=== PATIENT | female | born 1980 | race African-American/Black ===

== ENCOUNTER 2016-11-15 16:52 | Outpatient (CLI) | payer MEDICAID ==
[2016-11-15] MEDS ORDERED: LACTATED RINGERS 500 ML IV ONE (18:30)
[2016-11-15 18:32] LABS: Bilirubin,Urine NEG (Negative); Blood,Urine SM (Negative); Ketones,Urine NEG (Negative); Leukocyte Esterase,Urine NEG (Negative); Nitrite,Urine NEG (Negative); Protein,Urine <15 mg/dL mg/dL (Negative); Urobilinogen,Urine < 2.0 mg/dL (<2.0)
[2016-11-15 18:46] LABS: Mean Corpuscular HGB Conc 30 % (30-34); Platelet Count 224 K/mm3 (140-440); Red Blood Count 4.08 M/mm3 (3.65-5.03); Red Cell Distribution Width 19.7 % (13.2-15.2); White Blood Count 11.4 K/mm3 (4.5-11.0)
[2016-11-15 19:09] LABS: Alanine Aminotransferase 17 units/L (7-56); Lactate Dehydrogenase 189 units/L (91-180); Uric Acid 7.5 mg/dL (3.5-7.6)
[2016-11-15 19:21] LABS: Hematocrit 27.9 % (30.3-42.9); Hemoglobin 8.3 gm/dl (10.1-14.3); Mean Corpuscular Hemoglobin 20 pg (28-32); Mean Corpuscular Volume 68 fl (79-97)
--- NOTE | 2016-11-16 09:12 | Ultrasound Report ---
ULTRASOUND BIOPHYSICAL PROFILE: History: well being Technique: Transabdominal ultrasound with Doppler interrogation. 2 - breathing movements 2 - movements 2 - posture and tone 2 - Qualitative amniotic fluid volume 8 - TOTAL SCORE OF POSSIBLE 8 Heart Rate (bpm) 126
--- NOTE | 2016-11-16 09:13 | Ultrasound Report ---
ULTRASOUND OB LIMITED History: well being Technique: Transabdominal ultrasound with Doppler interrogation. Gestation: Single Position: Breech Amniotic Fluid: Normal LILIAM = 12.6 cm Heart Rate: 126 BPM
[2016-11-18 07:43] VITALS: BP 141/83
== END 2016-11-15 19:52 | disposition home or self-care (01) ==
LOC: TRG 16:52
PROVIDERS: ATTEND Obstetrics & Gynecology
DX: O32.1XX0 Maternal care for breech presentation, not applicable or unspecified (principal); O47.1 False labor at or after 37 completed weeks of gestation; Z3A.37 37 weeks gestation of pregnancy
CPT/HCPCS: 36415; 59025; 76815; 76819; 81001; 82565; 82962; 83615; 84450; 84460; 84550; 85027

== ENCOUNTER 2016-11-17 16:56 | Inpatient (IN) | payer MEDICAID ==
[2016-11-17 17:47] LABS: Hematocrit 28.7 % (30.3-42.9); Hemoglobin 8.6 gm/dl (10.1-14.3); Mean Corpuscular HGB Conc 30 % (30-34); Platelet Count 244 K/mm3 (140-440); Red Blood Count 4.18 M/mm3 (3.65-5.03); Red Cell Distribution Width 19.8 % (13.2-15.2); White Blood Count 13.2 K/mm3 (4.5-11.0)
[2016-11-17 17:50] LABS: Bilirubin,Urine NEG (Negative); Blood,Urine NEG (Negative); Ketones,Urine NEG (Negative); Leukocyte Esterase,Urine NEG (Negative); Mean Corpuscular Hemoglobin 21 pg (28-32); Mean Corpuscular Volume 69 fl (79-97); Nitrite,Urine NEG (Negative); Urobilinogen,Urine < 2.0 mg/dL (<2.0)
[2016-11-17] MEDS ORDERED: LACTATED RINGERS 1,000 ML ONE (17:57)
[2016-11-17 18:08] LABS: Alanine Aminotransferase 18 units/L (7-56); Lactate Dehydrogenase 252 units/L (91-180); Uric Acid 7.3 mg/dL (3.5-7.6)
[2016-11-17] MEDS ORDERED: CERVIDIL VG ONE (18:30)
--- NOTE | 2016-11-17 18:47 | History and Physical Report ---
History of Present Illness Date of examination: 11/17/16 Date of admission: 11/17/16 17:55 Chief complaint: sent from [facility] clinic for elevated blood pressures History of present illness: Pt cynthia 36 year old female THIERRY 12/04/16 at 37w4d who presents from [facility] clinic with elevated blood pressures for preeclampsia evaluation. Her has been complicated by chronic hypertension on no medication, advanced maternal age, morbid obesity, gestational diabetes A2 on glyburide 10mg BID as well as unstable lie. She had a placenta previa earlier in the that resolved. She is GBS negative. Given that this is the patient's second blood pressure elevation in one week and she was scheduled for delivery on SundayNovember 21, the decision was made to proceed with delivery. At the [facility] office earlier today, the patient was noted to be cephalic. Past History Past Medical History: hypertension, diabetes (gestational diabetes ), high cholesterol, other (morbid obesity ) Past Surgical History: no surgical history Family/Genetic History: hypertension, cancer Social history: no significant social history, - Obstetrical History Expected Date of Delivery: 12/04/16 Actual Gestation: 37 Week(s) 4 Day(s) : 6 Para: 5 Hx # Term Pregnancies: 5 Number of Pregnancies: 0 Spontaneous Abortions: 0 Induced : 0 Number of Living Children: 5 Medications and Allergies Allergies Allergy/AdvReac Type Severity Reaction Status Date / Time No Known Allergies Allergy Verified 11/15/16 17:35 Active Meds: Active Medications Hydralazine HCl (Apresoline) 5 mg IV Q30MIN PRN PRN Reason: Hypertension Lactated Ringer's (Lactated Ringers) 1,000 mls @ 125 mls/hr IV DIRECT OLI Review of Systems All systems: negative - Vital Signs Vital signs: Vital Signs Pulse BP 90 151/85 11/17/16 17:20 11/17/16 17:20 Temp Pulse Resp BP Pulse Ox 87 135/75 98 11/17/16 18:35 11/17/16 18:35 11/17/16 17:36 - Physical Exam Breasts: Positive: deferred Cardiovascular: Regular rate Lungs: Positive: Clear to auscultation Abdomen: Positive: soft (obese ), other (candidiasis of inguinal folds ) Genitourinary (Female): Positive: normal external genitalia Uterus: Positive: enlarged (gravid ) Extremities: Positive: edema (trace ) - Obstetrical FHR: auscultation normal Uterine Contraction Monitor Mode: External Cervical Dilatation: 0 Cervical Effacement Percentage: 30 station: -4 Uterine Contraction Pattern: Absent Uterine Tone Measurement Phase: Resting Results Result Diagrams: 11/17/16 17:30 11/17/16 17:30 Abnormal lab results 11/17/16 11/17/16 11/17/16 Range/Units 17:30 17:30 17:30 WBC 13.2 H (4.5-11.0) K/mm3 Hgb 8.6 L (10.1-14.3) gm/dl Hct 28.7 L (30.3-42.9) % MCV 69 L (79-97) fl MCH 21 L (28-32) pg RDW 19.8 H (13.2-15.2) % Creatinine 0.5 L (0.7-1.2) mg/dL Lactate Dehydrogenase 252 H (91-180) units/L U Epithel Cells (Auto) 14.0 H (0-13.0) /HPF All other labs normal. Assessment and Plan A: IUP at 37w4d Chronic hypertension with elevation of blood pressure Gestational Diabetes A2 on Glyburide 10 mg BID Morbid Obesity Advanced Maternal Age Unstable Lie GBS negative P: Admit to labor and delivery PIH labs Ultrasound to confirm cephalic presentation Accuchek with sliding scale as needed
[2016-11-17] MEDS ORDERED: D50W (25GM) IV PRN (18:48)
--- NOTE | 2016-11-17 18:55 | Event Note ---
Date: 11/17/16 Ultrasound shows oblique presentation with head in left upper quadrant. Unable to initiate an induction as pt needs to be delivered by delivery for malpresentation. Pt ate a full meal consisting of a Whopper sandwich just prior to her arrival. Plan observation over night with repeat ultrasound and planned at 7 am. Pt and understand and agree. will be done more urgently if maternal or status worsens.
[2016-11-17] MEDS ORDERED: NACL 0.9% 500 ML 500 ML IV ONE (18:56)
[2016-11-17] MEDS ORDERED: LACTATED RINGERS 1,000 ML IV SCH (19:00)
[2016-11-17] MEDS ORDERED: DIABETA PO SCH (20:30)
[2016-11-17] MEDS: APRESOLINE IV PRN (23:35)
[2016-11-18] MEDS ORDERED: REGLAN IV ONE (05:05)
[2016-11-18] MEDS ORDERED: BICITRA PO ONE (05:05)
[2016-11-18] MEDS ORDERED: PEPCID IV ONE (05:05)
[2016-11-18] MEDS ORDERED: LACTATED RINGERS 1,000 ML IV SCH ×3 (06:00→21:00)
[2016-11-18] MEDS ORDERED: ANCEF/STERILE WATER 2 GM/20 ML 2 GM/20 ML SYRINGE IV NR (06:00)
[2016-11-18] MEDS ORDERED: PITOCin/NS 20 UNIT/1000ML DRIP 20 UNITS/1,000 ML BAG IV SCH ×2 (06:00→11:55)
[2016-11-18] MEDS: APRESOLINE IV PRN (06:29)
--- NOTE | 2016-11-18 07:57 | Anesthesia Consultation ---
Anesthesia Consult and Med Hx Date of service: 11/18/16 - Airway Anesthetic Teeth Evaluation: Good ROM Head & Neck: Adequate Mental/Hyoid Distance: Adequate Mallampati Class: Class II Intubation Access Assessment: Probably Good - Pulmonary Exam CTA: Yes - Cardiac Exam Cardiac Exam: RRR - Pre-Operative Health Status ASA Pre-Surgery Classification: ASA3, Emergency Proposed Anesthetic Plan: Epidural, Spinal - Pulmonary Hx Asthma: No COPD: No Hx Pneumonia: No - Cardiovascular System Hx Hypertension: Yes - Central Nervous System Hx Seizures: No Hx Psychiatric Problems: No - Endocrine Hx Renal Disease: No Hx End Stage Renal Disease: No Hx Hypothyroidism: No Hx Hyperthyroidism: No - Hematic Hx Anemia: No Hx Sickle Cell Disease: No - Other Systems Hx Alcohol Use: Yes (occasional) Hx Obesity: Yes (morbid)
--- NOTE | 2016-11-18 07:58 | Anesthesia Day of Surgery ---
Anesthesia Day of Surgery - Day of Surgery Patient Examined: Yes Patient H&P Reviewed: Yes Patient is NPO: Yes (FSP)
[2016-11-18] MEDS ORDERED: LACTATED RINGERS 1,000 ML ONE (08:27)
[2016-11-18] MEDS ORDERED: NACL 0.9% 100 ML ONE (08:27)
[2016-11-18] MEDS ORDERED: NEO SYNEPHRINE ONE (08:27)
[2016-11-18] MEDS ORDERED: NACL 0.9% IR ONE (08:33)
[2016-11-18] MEDS ORDERED: WATER FOR IRRIG STERILE IR ONE (08:33)
[2016-11-18] MEDS ORDERED: MORPHINE ONE (08:56)
[2016-11-18] MEDS ORDERED: ePHEDrine SULFATE ONE (09:03)
[2016-11-18] MEDS ORDERED: SUBLIMAZE ONE (09:14)
[2016-11-18] MEDS ORDERED: VERSED ONE (09:22)
--- NOTE | 2016-11-18 10:10 | Post Anesthesia Evaluation ---
- Post Anesthesia Evaluation Patient Participated: Yes Airway Patent: Yes Stable Respiratory Function: Yes Temp > 96.8F: Yes Pain Manageable: Yes Adequeate Hydration: Yes Anesthesia Complications: No Block Receding Appropriately: Not Applicable
--- NOTE | 2016-11-18 10:14 | Procedure Note ---
OB Delivery Note - Delivery Date of Delivery: 11/18/16 Surgeon: MAUREEN PELAEZ Estimated blood loss: other (900 mL) - Section Preop diagnosis: other malpresentation (Transverse ) Postop diagnosis: other (Chronic HTN, GDM, AMA, Morbid Obesity , Vertex presentation) section procedure: section, primary low transverse Disposition: PACU Complications: none Narrative: Please see operative report. - Infant A at 1 minute: 8 at 5 minutes: 9 Gender: Female (3371g (7lb 7 oz))
--- NOTE | 2016-11-18 10:16 | Ultrasound Report ---
Gestation: Single Position: Breech Placenta: Anterior Placental Grade: 1 Heart Rate: 154 BPM
--- NOTE | 2016-11-18 10:22 | Ultrasound Report ---
Gestation: Single Position: Transverse and right Heart Rate: 134 BPM
--- NOTE | 2016-11-18 10:28 | Operative Report ---
Operative Report Operative Report: Date of procedure: November 18, 2016 Preoperative diagnosis: 1) IUP at 37w5d 2) Transverse Presentation; Unstable Lie 3) Chronic Hypertension 4) Gestational Diabetes 5) Morbid Obesity 6) Advanced Maternal Age Postoperative diagnosis: 1) IUP at 37w5d 2) Chronic Hypertension 4) Gestational Diabetes 5) Morbid Obesity 6) Advanced Maternal Age Procedure: Primary Low Transverse Section Surgeon: Taylor Canada M.D. Anesthesia: Spinal-Epidural Findings: 1) Viable female , Apgars 8 and 9, weight 3371g, (7 lb 7 oz) in vertex presentation. True knot of umbilical cord. 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 Counts correct x 3 Disposition: Stable to PACU Indication for procedure: Patient is a 36-year-old [place] 005 initially admitted at 37 weeks 4 days from maternal- medicine clinic. She was noted to have elevated blood pressures in the office and was sent to the hospital for further evaluation. Given that this was the patient's second evaluation for elevated blood pressure within 1 week the decision was made to proceed with delivery as the patient was scheduled for delivery in 4 days. The patient was initially vertex on her ultrasound at maternal- medicine clinic. However, repeat ultrasound after hospital arrival showed transverse presentation. The ultrasound was repeated immediately prior to the section and again showed transverse presentation Operation in detail: After the risks, benefits, alternatives and complications were explained to the patient she gave informed consent for the procedure. She was subsequently taken to the operating room where spinal-epidural anesthesia was noted to be adequate. She was subsequently placed in the dorsal supine position with leftward tilt and prepped and draped in a normal sterile fashion. heart tones were noted to be in the 140 s prior to incision. A timeout was performed. A Pfannenstiel skin incision was made with the knife and carried down to the layer of the fascia with the Bovie. The fascia was incised in the midline and the fascial incision was extended bilaterally with the Bovie. Attention was then turned to the superior aspect of the incision which was grasped with two Kochers, tented up, and dissected off the rectus muscles. Attention was then turned to the inferior aspect of the incision which was grasped with two Kochers , tented up and dissected off the rectus muscles. The rectus muscles were then in the midline. The peritoneum was then entered bluntly. The peritoneal incision was extended with good visualization of the bladder. The peritoneal incision was then stretched. An Reggie self-retaining retractor was placed for visualization. The bladder blade was placed. The vesicouterine peritoneum was grasped with smooth pickups and incised with Metzenbaum scissors. Metzenbaum scissors were used to extend the incision bilaterally. The bladder flap was then created digitally and the bladder blade was replaced. At this time multiple varices were noted in the lower uterine segment. A transverse incision was made superior to these varices with a knife and extended bilaterally with the bandage scissors. The head was delivered without difficulty followed by shoulders and body. was bulb suctioned at delivery. The cord was clamped and cut and the was handed to NICU staff in attendance. The placenta was then delivered manually. The uterus was then exteriorized and cleared of all clots and debris. The hysterotomy was then reapproximated with 0 Vicryl in a running locked fashion. A second layer of the same suture was used in imbricating fashion. A figure-of- eight of 0 Vicryl was used at the center of the incision to obtain hemostasis. The hysterotomy was inspected and hemostasis was noted. The Reggie self- retaining retractor was removed. The gutters were irrigated and cleared of all clots and debris. The hysterotomy was again inspected and noted to be hemostatic. Tisseel was sprayed over the hysterotomy. The rectus muscles and peritoneum were then reapproximated with 2-0 Vicryl in an interrupted fashion. Surgicel was placed over the rectus muscles. The fascia was reapproximated with 0 Vicryl in a running fashion. The subcutaneous tissue was reapproximated with 3-0 Vicryl in a running fashion. The skin was reapproximated with 4-0 Vicryl in a subcuticular fashion. The incision was then covered with steri strips and a pressure dressing. The procedure was then ended. The patient tolerated the procedure well and was taken to the PACU in stable condition. All instrument, lap, and needle counts were correct 3. Given the patient's low preoperative hemoglobin and hematocrit, another hemoglobin and hematocrit will be drawn in the PACU.
[2016-11-18] MEDS ORDERED: PHENERGAN PR PRN (11:00)
[2016-11-18] MEDS ORDERED: DILAUDID IV PRN (11:00)
[2016-11-18] MEDS ORDERED: PHENERGAN PO PRN (11:00)
[2016-11-18] MEDS ORDERED: NARCAN 0.4 MG/1 ML IV PRN ×2 (11:00→11:55)
[2016-11-18] MEDS ORDERED: ZOFRAN IV PRN ×2 (11:00→11:55)
[2016-11-18 11:09] LABS: Hemoglobin 7.4 gm/dl (10.1-14.3)
[2016-11-18] MEDS ORDERED: TUCKS PAD TP PRN (11:55)
[2016-11-18] MEDS ORDERED: LANSINOH TP PRN (11:55)
[2016-11-18] MEDS ORDERED: MORPHINE IV PRN ×2 (11:55)
[2016-11-18] MEDS ORDERED: MYLICON PO PRN (11:55)
[2016-11-18] MEDS ORDERED: SODIUM CHLORIDE FLUSH SYRINGE 10 ML IV NR (11:55)
[2016-11-18] MEDS ORDERED: TYLENOL PO PRN (11:55)
[2016-11-18] MEDS ORDERED: TORADOL IV PRN (11:55)
[2016-11-18] MEDS: ANCEF/NS 1 GM/50 ML 1 GM/50 ML BAG IV SCH ×2 (15:00→23:21)
[2016-11-18] MEDS ORDERED: BENADRYL IV PRN (15:20)
[2016-11-18] MEDS: FEOSOL PO SCH (22:00)
[2016-11-18 23:13] LABS: Hematocrit 25.1 % (30.3-42.9); Hemoglobin 7.5 gm/dl (10.1-14.3); Mean Corpuscular HGB Conc 30 % (30-34); Platelet Count 226 K/mm3 (140-440); White Blood Count 18.3 K/mm3 (4.5-11.0)
[2016-11-18 23:14] LABS: Mean Corpuscular Hemoglobin 21 pg (28-32); Mean Corpuscular Volume 70 fl (79-97)
[2016-11-18] MEDS: PERCOCET 5/325 PO PRN (23:56)
[2016-11-19] MEDS: MOTRIN PO PRN ×3 (04:08→17:59)
[2016-11-19] MEDS ORDERED: MILK OF MAGNESIA PO PRN (08:00)
[2016-11-19] MEDS: FEOSOL PO SCH (09:31)
[2016-11-19] MEDS: PRENATAL VITAMIN PO SCH (09:31)
[2016-11-19] MEDS: PERCOCET 5/325 PO PRN (09:33)
[2016-11-19] MEDS ORDERED: PERCOCET 5/325 PO PRN (10:06)
--- NOTE | 2016-11-19 10:07 | Progress Note ---
Assessment and Plan A: POD#1 s/p primary section at term, chronic hypertension, gestational diabetes A2, morbid obesity advanced maternal age P: Routine postop care. Abdominal binder. Subjective - Subjective Date of service: 11/19/16 Principal diagnosis: s/p primary section at term Interval history: No overnight events. Pt asking when she can go home. Patient reports: appetite normal, voiding normally, pain well controlled, flatus , ambulating normally, no bowel movement, no nauseated [place]: in NICU (for hypoglycemia ) Objective - Vital Signs Latest vital signs: Vital Signs Temp Pulse Pulse Pulse Resp BP BP 11/19/16 09:35 20 11/19/16 09:33 20 11/19/16 07:49 97.9 F 79 20 138/95 11/19/16 04:08 18 11/18/16 23:56 18 11/18/16 23:30 98.6 F 68 16 111/77 11/18/16 19:25 98.6 F 78 16 136/75 11/18/16 16:04 20 11/18/16 15:29 98.7 F 90 20 130/86 11/18/16 11:40 98.8 F 98 H 20 128/73 11/18/16 11:06 24 11/18/16 11:04 99.0 F 99 H 26 H 118/68 11/18/16 10:49 98 H 31 H 118/72 11/18/16 10:34 103 H 32 H 118/70 11/18/16 10:19 103 H 30 H 103/63 11/18/16 10:14 103 H 28 H 110/63 11/18/16 10:09 101 H 28 H 109/64 Pulse Ox 11/19/16 09:35 11/19/16 09:33 11/19/16 07:49 11/19/16 04:08 11/18/16 23:56 11/18/16 23:30 11/18/16 19:25 11/18/16 16:04 11/18/16 15:29 11/18/16 11:40 11/18/16 11:06 11/18/16 11:04 98 11/18/16 10:49 97 11/18/16 10:34 97 11/18/16 10:19 98 11/18/16 10:14 97 11/18/16 10:09 97 Intake and Output 11/18/16 11/19/16 11/19/16 22:59 06:59 14:59 Intake Total 1190 500 Output Total 120 1800 Balance 1070 -1300 Intake: IV 300 ANCEF/NS 1 GM/50 ML 1 gm 50 In 50 ml @ 100 mls/hr IV Q8H OLI Rx#:[id number] PITOCin/NS 20 UNIT/1000ML 250 DRIP 20 units In 1,000 ml @ 250 mls/hr IV DIRECT OLI Rx#:[id number] Oral 400 Intake, Free Water 490 500 Output: Urine 120 1800 Indwelling Catheter 120 600 Void 1200 Other: Total, Intake Amount 160 Total, Output Amount 120 600 # Voids Void 1 - Exam Breasts: Present: deferred Cardiovascular: Present: Regular rate Lungs: Present: Clear to auscultation Abdomen: Present: soft (obese) Uterus: Present: fundal height below umbilicus Extremities: Present: normal Incision: Present: intact - Labs Labs: Abnormal lab results 11/17/16 11/17/16 11/18/16 Range/Units 17:30 23:24 06:51 WBC (4.5-11.0) K/mm3 RBC (3.65-5.03) M/mm3 Hgb (10.1-14.3) gm/dl Hct (30.3-42.9) % MCV (79-97) fl MCH (28-32) pg RDW (13.2-15.2) % POC Glucose 153 H 122 H 56 L (70-105) 11/18/16 11/18/16 11/18/16 Range/Units 10:30 11:19 22:52 WBC 18.3 H (4.5-11.0) K/mm3 RBC 3.60 L (3.65-5.03) M/mm3 Hgb 7.4 L 7.5 L (10.1-14.3) gm/dl Hct 25.0 L 25.1 L (30.3-42.9) % MCV 70 L (79-97) fl MCH 21 L (28-32) pg RDW 20.0 H (13.2-15.2) % POC Glucose 143 H (70-105)
[2016-11-19] MEDS ORDERED: BOOSTRIX IM ONE (10:35)
[2016-11-19] MEDS ORDERED: M-M-R II VACCINE SUB-Q ONE (10:35)
[2016-11-20] MEDS: FEOSOL PO SCH ×3 (02:00→22:35)
[2016-11-20] MEDS: MOTRIN PO PRN ×3 (02:05→22:35)
--- NOTE | 2016-11-20 08:56 | Progress Note ---
Assessment and Plan POD#2 c/sec for breech, HTN 1. patient ambulating well 2. tolerating diet and pain well controlled 3. rh + no rhogam indicated 4. baby in [place] for hypoglycemia 5. breast feeding 6 BP will continue to watch will consider antihypertensive ( consider labetolol ) 7. incision clean dry intact 8. Unsure of control 9. consider d/c home tomorrow as baby should be pending discharge Subjective - Subjective Date of service: 11/20/16 Principal diagnosis: s/p primary section at term Patient reports: appetite normal, voiding normally, pain well controlled, flatus , ambulating normally [place]: doing well, in NICU Objective - Vital Signs Latest vital signs: Vital Signs Temp Pulse Resp BP 11/20/16 02:05 18 11/20/16 00:00 98.6 F 77 16 123/75 11/19/16 17:59 20 11/19/16 15:55 98.9 F 98 H 20 145/82 11/19/16 09:35 20 11/19/16 09:33 20 Intake and Output 11/19/16 11/20/16 11/20/16 22:59 06:59 14:59 Intake Total 600 Balance 600 Intake: Intake, Free Water 600 - Exam Breasts: Present: normal Cardiovascular: Present: Regular rate, Normal S1 Lungs: Present: Clear to auscultation, Normal air movement Abdomen: Present: normal appearance, soft, normal bowel sounds. Absent: distention, tenderness, guarding Vulva: both: normal Uterus: Present: normal, firm, fundal height below umbilicus. Absent: bogginess , tenderness Extremities: Present: normal Incision: Present: normal, dry, intact
[2016-11-20] MEDS: PRENATAL VITAMIN PO SCH (11:30)
[2016-11-20] MEDS: NORMODYNE PO SCH (22:33)
--- NOTE | 2016-11-21 08:29 | Progress Note ---
Assessment and Plan - Patient Problems (1) Unstable lie of fetus Current Visit: Yes Status: Acute Qualifiers: Fetus number: F Plan to address problem: Discharge home Subjective - Subjective Date of service: 11/21/16 Principal diagnosis: s/p primary section at term Interval history: The patient is doing well. She is tolerating regular diet and her pain is well controlled. Patient reports: appetite normal, voiding normally, pain well controlled : in NICU Objective - Vital Signs Latest vital signs: Vital Signs Temp Pulse Pulse Resp BP BP 11/21/16 08:20 16 11/21/16 00:00 98.7 F 83 20 109/54 11/20/16 22:33 76 130/76 11/20/16 16:36 98.4 F 85 20 135/78 11/20/16 11:30 20 11/20/16 08:35 98.9 F 91 H 20 144/87 Intake and Output 11/20/16 11/21/16 11/21/16 22:59 06:59 14:59 Intake Total 240 Balance 240 Intake: Oral 240 Other: Total, Intake Amount 240 # Voids Void 1 1 - Exam Abdomen: Present: normal appearance, soft Incision: Present: normal - Labs Labs: Abnormal lab results 11/17/16 Range/Units 17:30 Crossmatch See Detail
--- NOTE | 2016-11-21 08:31 | Discharge Summary ---
Providers - Providers Date of Admission: 11/17/16 17:55 Date of discharge: 11/21/16 Attending physician: MAUREEN PELAEZ 11/18/16 11:55 Consult to Official Greeter [CONS] Routine Reason For Exam: Primary care physician: MAUREEN PELAEZ Hospitalization Reason for admission: induction of labor Procedure: section, primary low transverse Incision: normal complications: other (elevated blood pressures) Discharge diagnosis: IUP at term delivered [place] baby: female Hospital course: Preoperative request of maternal medicine and the patient was admitted for delivery. has been complicated by gestational diabetes and unstable lie. A primary delivery was performed secondary to unstable lie. The patient will was administered antihypertensives . Condition at discharge: Good Disposition: DISCHARGED TO HOME OR SELFCARE - Discharge Diagnoses (1) Unstable lie of fetus Status: Acute Qualifiers: Fetus number: F Plan - Discharge Medications Prescriptions: Docusate Sodium [Colace] 100 mg PO BID PRN #60 capsule PRN Reason: Constipation Ferrous Sulfate [Feosol 325 MG tab] 325 mg PO BID #60 tablet Ibuprofen [Motrin 800 MG tab] 800 mg PO Q8HR PRN #30 tablet PRN Reason: Pain Labetalol [Normodyne TAB] 100 mg PO BID #60 tablet oxyCODONE /ACETAMINOPHEN [Percocet 5/325] 1 tab PO Q6HR PRN #30 tablet PRN Reason: Pain - Provider Discharge Summary Activity: no sex for 6 weeks, no heavy lifting 4 weeks, no strenuous exercise Diet: routine Instructions: routine Additional instructions: [] Smoking cessation referral if applicable(refer to patient education folder for contact #) [] Refer to [facility]'s [facility] Booklet Call your doctor immediately for: * Fever > 100.5 * Heavy vaginal bleeding ( >1 pad per hour) * Severe persistent headache * Shortness of breath * Reddened, hot, painful area to leg or breast * Drainage or odor from incision. * Keep incision clean and dry at all times and follow doctor's instructions regarding bathing/showering Follow-up in 2 weeks - Follow up plan
[2016-11-21] MEDS: PRENATAL VITAMIN PO SCH (10:32)
[2016-11-21] MEDS: FEOSOL PO SCH (10:32)
[2016-11-21] MEDS: NORMODYNE PO SCH (10:33)
--- NOTE | 2016-11-21 10:36 | Progress Note ---
Subjective Date of service: 11/21/16 Principal diagnosis: s/p primary section at term Interval history: 3rd POD after Patient is in the bed, comfortable. Pain is well controlled with pain meds. Ambulated well. No residual neurological deficit. No anesthesia complications Objective - Constitutional Vitals: Vital Signs - 12hr 11/20/16 11/21/16 11/21/16 22:33 00:00 08:18 Temperature 98.7 F 98.3 F Pulse Rate 76 Pulse Rate [ 83 From Monitor] Pulse Rate [ 90 Right Radial] Respiratory 20 20 Rate Blood Pressure 130/76 Blood Pressure 109/54 [Left Arm] Blood Pressure 128/84 [Right Arm] 11/21/16 08:20 Temperature Pulse Rate Pulse Rate [ From Monitor] Pulse Rate [ Right Radial] Respiratory 16 Rate Blood Pressure Blood Pressure [Left Arm] Blood Pressure [Right Arm] - Labs CBC & Chem 7: 11/18/16 22:52 11/17/16 17:30 Labs: Abnormal lab results 11/17/16 Range/Units 17:30 Crossmatch See Detail
[2016-11-21 14:21] VITALS: BP 126/60
== END 2016-11-21 15:15 | disposition home or self-care (01) | DRG 765 ==
LOC: TRG 16:56 → LD 16:57 → TRG 17:55 → LD 17:55 → OB 11-18 11:35
PROVIDERS: ADMIT Obstetrics & Gynecology; ATTEND Obstetrics & Gynecology
PROC: 10D00Z1 Extraction of Products of Conception, Low, Open Approach (ICD-10-PCS; principal; 2016-11-18)
DX: O32.8XX0 Maternal care for other malpresentation of fetus, not applicable or unspecified (principal); O10.92 Unspecified pre-existing hypertension complicating childbirth; Z68.41 Body mass index [BMI] 40.0-44.9, adult; O24.425 Gestational diabetes mellitus in childbirth, controlled by oral hypoglycemic drugs; Z3A.37 37 weeks gestation of pregnancy; E66.01 Morbid (severe) obesity due to excess calories; Z37.0 Single live birth; O75.89 Other specified complications of labor and delivery; E78.00 Pure hypercholesterolemia, unspecified; O99.214 Obesity complicating childbirth
CPT/HCPCS: 36415; 76815; 81001; 82565; 82962; 83615; 84450; 84460; 84550; 85014; 85018; 85027; 86850; 86900; 86901; 86920; 88307; 99211; C9250; G0463; J0360; J0690; J1170; J1200; J1885; J2250; J2270; J2370; J2590; J2765; J3010; J7120

== ENCOUNTER 2018-04-23 19:26 | Inpatient (IN) | payer OTHER ==
[2018-04-23] MEDS ORDERED: TYLENOL PO PRN (21:14)
[2018-04-23] MEDS ORDERED: BENADRYL PO PRN (21:14)
[2018-04-23] MEDS ORDERED: COLACE PO PRN (21:14)
[2018-04-23] MEDS ORDERED: DEEP SEA NS PRN (21:14)
[2018-04-23] MEDS ORDERED: ZOFRAN IV PRN (21:14)
--- NOTE | 2018-04-23 21:31 | History and Physical Report ---
History of Present Illness Date of admission: 04/23/18 Chief complaint: Sent from [facility] for elevated blood pressure History of present illness: Pt is a 37 year old THIERRY 07/13/18 at 28w3d presents from [facility] office for further evaluation of elevated blood pressure. She reports taking her Methyldopa 250 mg BID. She denies any other symptoms at this time. She has had care at [facility] secondary to chronic hypertension, gestational diabetes, morbid obesity, advanced maternal age, UTI- treated, GBS positive status, HSV2 equivocal. Past History Past Medical History: hypertension, diabetes (gestational ), high cholesterol Past Surgical History: section [employer] History: herpes (equivocal ) Family/Genetic History: heart disease Social history: no significant social history, - Obstetrical History Expected Date of Delivery: 07/13/18 Actual Gestation: 28 Week(s) 3 Day(s) : 7 Para: 6 Hx # Term Pregnancies: 6 Number of Pregnancies: 0 Spontaneous Abortions: 0 Induced : 0 Number of Living Children: 6 Medications and Allergies Allergies Allergy/AdvReac Type Severity Reaction Status Date / Time No Known Allergies Allergy Verified 11/15/16 17:35 Home Medications Medication Instructions Recorded Confirmed Last Taken Type Pnv No.95/Ferrous Fum/Folic AC 1 tab PO DAILY 11/18/16 11/18/16 Unknown History [ Vitamin Tablet] glyBURIDE [Glyburide] 10 mg PO BID 11/18/16 11/18/16 1 Day Ago History ~11/17/16 Docusate Sodium [Colace] 100 mg PO BID PRN #60 capsule 11/19/16 Unknown Rx Ferrous Sulfate [Feosol 325 MG tab] 325 mg PO BID #60 tablet 11/19/16 Unknown Rx Ibuprofen [Motrin 800 MG tab] 800 mg PO Q8HR PRN #30 tablet 11/19/16 Unknown Rx oxyCODONE /ACETAMINOPHEN [Percocet 1 tab PO Q6HR PRN #30 tablet 11/19/16 Unknown Rx 5/325] Labetalol [Normodyne TAB] 100 mg PO BID #60 tablet 11/21/16 Unknown Rx Active Meds: Active Medications Acetaminophen (Tylenol) 650 mg PO Q4H PRN PRN Reason: Pain MILD(1-3)/Fever >100.5/FREIRE Diphenhydramine HCl (Benadryl) 25 mg PO Q6H PRN PRN Reason: Itching Docusate Sodium (Colace) 100 mg PO Q12H PRN PRN Reason: Constipation Hydralazine HCl (Apresoline) 5 mg IV Q30MIN PRN PRN Reason: Hypertension Lactated Ringer's (Lactated Ringers) 1,000 mls @ 125 mls/hr IV DIRECT OLI Labetalol HCl (Normodyne) 200 mg PO BID OLI Multivitamins/Iron/Calcium ( Vitamin) 1 each PO QDAY OLI Ondansetron HCl (Zofran) 4 mg IV Q6H PRN PRN Reason: Nausea And Vomiting Sodium Chloride (Deep Sea) 2 spray NS Q4H PRN PRN Reason: Congestion Review of Systems All systems: negative - Vital Signs Vital signs: Vital Signs Temp Pulse Resp BP 98.2 F 79 18 173/94 04/23/18 20:00 04/23/18 20:00 04/23/18 20:00 04/23/18 20:00 Temp Pulse Resp BP Pulse Ox 98.2 F 73 18 147/81 04/23/18 20:00 04/23/18 21:16 04/23/18 20:00 04/23/18 21:16 Results All other labs normal. Assessment and Plan A: IUP at 28w3d Chronic Hypertension with elevated blood pressures today, presently on Methyldopa 250 mg BID Gestational Diabetes Morbid Obesity Advanced Maternal Age Previous x 1 HSV equivocal GBS positive P: Admit to antepartum service Begin Labetalol 200 mg BID PIH panel 24 hr urine collection Betamethasone Sliding scale insulin and accucheks Closely monitor maternal and status Consider magnesium therapy for persistently severe blood pressures
[2018-04-23] MEDS ORDERED: D50W (25GM) Syringe IV PRN (21:39)
[2018-04-23] MEDS: NORMODYNE PO SCH (22:51)
[2018-04-23] MEDS: CELESTONE SOLUSPAN IM SCH (22:51)
[2018-04-23 23:06] LABS: Basophils % (Auto) 0.2 % (0.0-1.8); Eosinophils # (Auto) 0.3 K/mm3 (0.0-0.4); Eosinophils % (Auto) 2.1 % (0.0-4.3); Hematocrit 34.8 % (30.3-42.9); Hemoglobin 11.1 gm/dl (10.1-14.3); Lymphocytes % (Auto) 16.2 % (13.4-35.0); Mean Corpuscular HGB Conc 32 % (30-34); Mean Corpuscular Hemoglobin 25 pg (28-32); Mean Corpuscular Volume 77 fl (79-97); Monocytes # (Auto) 0.7 K/mm3 (0.0-0.8); Monocytes % (Auto) 5.8 % (0.0-7.3); Platelet Count 222 K/mm3 (140-440); Red Blood Count 4.51 M/mm3 (3.65-5.03); Red Cell Distribution Width 15.2 % (13.2-15.2)
[2018-04-23 23:19] LABS: Alanine Aminotransferase 10 units/L (7-56)
[2018-04-23 23:20] LABS: Bilirubin,Urine NEG (Negative); Blood,Urine MOD (Negative); Color,Urine Yellow (Yellow); Urobilinogen,Urine < 2.0 mg/dL (<2.0)
[2018-04-24 00:50] LABS: Uric Acid 5.5 mg/dL (3.5-7.6)
[2018-04-24] MEDS: HumuLIN R SUB-Q SCH ×5 (01:19→17:02)
[2018-04-24] MEDS: NORMODYNE PO SCH ×2 (10:18→22:32)
[2018-04-24] MEDS: PRENATAL VITAMIN PO SCH (10:18)
[2018-04-24] MEDS: APRESOLINE IV PRN ×2 (11:30→12:04)
--- NOTE | 2018-04-24 11:54 | Progress Note ---
Assessment and Plan A: IUP at 28w4d Chronic Hypertension with elevated blood pressures Gestational Diabetes Morbid Obesity Advanced Maternal Age Previous x 1 HSV equivocal GBS positive P: Admit to antepartum service Labetalol 200 mg BID PIH panel normal 24 hr urine collection awiating Betamethasone Sliding scale insulin and accucheks Closely monitor maternal and status APU consult with Dr. Mccord Subjective - Subjective Date of service: 04/24/18 Principal diagnosis: morbid obesity, chronic HTN, DM, Patient reports: movement normal, no new complaints, no loss of fluid, no vaginal bleeding, no contractions Objective - Vital Signs Vital Signs: Vital Signs - 12hr 04/24/18 04/24/18 04/24/18 00:50 01:50 02:51 Temperature Pulse Rate 74 77 74 Respiratory Rate Blood Pressure 131/71 131/75 140/72 Blood Pressure [Right] O2 Sat by Pulse Oximetry 04/24/18 04/24/18 04/24/18 03:51 04:50 05:50 Temperature 97.9 F Pulse Rate 80 77 69 Respiratory 18 Rate Blood Pressure 158/82 132/81 137/74 Blood Pressure [Right] O2 Sat by Pulse Oximetry 04/24/18 04/24/18 04/24/18 06:50 07:51 07:55 Temperature Pulse Rate 77 81 75 Respiratory Rate Blood Pressure 143/85 173/90 158/83 Blood Pressure [Right] O2 Sat by Pulse Oximetry 04/24/18 04/24/18 04/24/18 07:56 07:57 08:01 Temperature 97.9 F Pulse Rate 80 83 82 Respiratory 18 Rate Blood Pressure Blood Pressure 158/83 [Right] O2 Sat by Pulse 96 96 96 Oximetry 04/24/18 04/24/18 04/24/18 08:06 08:11 08:16 Temperature Pulse Rate 90 82 82 Respiratory Rate Blood Pressure Blood Pressure [Right] O2 Sat by Pulse 96 96 96 Oximetry 04/24/18 04/24/18 04/24/18 08:21 08:50 08:52 Temperature Pulse Rate 84 79 83 Respiratory Rate Blood Pressure 177/97 169/91 Blood Pressure [Right] O2 Sat by Pulse 96 Oximetry 04/24/18 04/24/18 04/24/18 09:50 10:16 10:18 Temperature Pulse Rate 82 85 85 Respiratory Rate Blood Pressure 184/104 181/92 172/80 Blood Pressure [Right] O2 Sat by Pulse Oximetry 04/24/18 04/24/18 04/24/18 10:51 11:25 11:30 Temperature Pulse Rate 81 81 81 Respiratory Rate Blood Pressure 182/97 197/97 197/97 Blood Pressure [Right] O2 Sat by Pulse Oximetry - Exam Breasts: normal Cardiovascular: Regular rate Lungs: Clear to auscultation, Normal air movement Abdomen: Present: normal appearance, soft, normal bowel sounds. Absent: distention, tenderness, guarding Vulva: both: normal Uterus: Present: normal, firm, fundal height below umbilicus. Absent: bogginess , tenderness FHR: category 1 - Labs Labs: Abnormal Labs 04/23/18 04/23/18 04/24/18 22:30 22:30 01:13 WBC 12.5 H MCV 77 L MCH 25 L Seg Neutrophils % 75.7 H Seg Neutrophils # 9.4 H Creatinine 0.4 L POC Glucose 228 H 04/24/18 04/24/18 08:15 10:36 WBC MCV MCH Seg Neutrophils % Seg Neutrophils # Creatinine POC Glucose 185 H 174 H Laboratory Results - last 24 hr 04/23/18 04/23/18 04/23/18 22:29 22:30 22:30 WBC 12.5 H RBC 4.51 Hgb 11.1 Hct 34.8 MCV 77 L MCH 25 L MCHC 32 RDW 15.2 Plt Count 222 Lymph % (Auto) 16.2 [place] % (Auto) 5.8 Eos % (Auto) 2.1 Baso % (Auto) 0.2 Lymph # 2.0 [place] # 0.7 Eos # 0.3 Baso # 0.0 Seg Neutrophils % 75.7 H Seg Neutrophils # 9.4 H Creatinine Estimated GFR POC Glucose 95 Uric Acid AST ALT Lactate Dehydrogenase Urine Color Urine Turbidity Urine pH Ur Specific [place] Urine Protein Urine Glucose (UA) Urine Ketones Urine Blood Urine Nitrite Urine Bilirubin Urine Urobilinogen Ur Leukocyte Esterase Urine WBC (Auto) Urine RBC (Auto) U Epithel Cells (Auto) Blood Type A POSITIVE Antibody Screen Negative 04/23/18 04/23/18 04/24/18 22:30 22:47 01:13 WBC RBC Hgb Hct MCV MCH MCHC RDW Plt Count Lymph % (Auto) [place] % (Auto) Eos % (Auto) Baso % (Auto) Lymph # [place] # Eos # Baso # Seg Neutrophils % Seg Neutrophils # Creatinine 0.4 L Estimated GFR > 60 POC Glucose 228 H Uric Acid 5.5 AST 23 ALT 10 Lactate Dehydrogenase 164 Urine Color Yellow Urine Turbidity Clear Urine pH 7.0 Ur Specific [place] 1.011 Urine Protein 30 mg/dl Urine Glucose (UA) Neg Urine Ketones Neg Urine Blood Mod Urine Nitrite Neg Urine Bilirubin Neg Urine Urobilinogen < 2.0 Ur Leukocyte Esterase Neg Urine WBC (Auto) 1.0 Urine RBC (Auto) 5.0 U Epithel Cells (Auto) < 1.0 Blood Type Antibody Screen 04/24/18 04/24/18 08:15 10:36 WBC RBC Hgb Hct MCV MCH MCHC RDW Plt Count Lymph % (Auto) [place] % (Auto) Eos % (Auto) Baso % (Auto) Lymph # [place] # Eos # Baso # Seg Neutrophils % Seg Neutrophils # Creatinine Estimated GFR POC Glucose 185 H 174 H Uric Acid AST ALT Lactate Dehydrogenase Urine Color Urine Turbidity Urine pH Ur Specific [place] Urine Protein Urine Glucose (UA) Urine Ketones Urine Blood Urine Nitrite Urine Bilirubin Urine Urobilinogen Ur Leukocyte Esterase Urine WBC (Auto) Urine RBC (Auto) U Epithel Cells (Auto) Blood Type Antibody Screen
[2018-04-24] MEDS ORDERED: MAGNESIUM SULFATE 4GM/100ML 4 GM/100 ML BAG IV ONE (11:56)
[2018-04-24] MEDS ORDERED: MAGNESIUM SULFATE 2GM/50ML 2 GM/50 ML BAG IV ONE (11:56)
[2018-04-24] MEDS ORDERED: NORMODYNE IV ONE (11:59)
[2018-04-24] MEDS: LACTATED RINGERS 1,000 ML IV SCH (13:21)
[2018-04-24] MEDS ORDERED: HumuLIN R IV ONE (13:47)
--- NOTE | 2018-04-24 13:54 | Consultation ---
History of Present Illness Consult date: 04/24/18 Requesting physician: CLEM ARCHULETA History of present illness: Ms. Thakkar now 28 4/7 weeks sent in from [facility] yesterday for Elevated BP's H/O CHTN - on Labetalol 200 BID H/O DM - on diet but reports uncontrolled with "FBS in 100's and 2 PP's elevated " Denies FREIRE's [place] or RUQ Pain BP's high at 197/97 Received 2 doses of IV hydralazine and now BP's 133/74 and 126/68 On Mg and Receiving Steroids PIH Labs H/H at 1134.8 Plts at 222 creat at .4 AST/ALT at 23/10 Spot UA Prot at 30 EFM - 150 [facility] 04/23/18 EFW at 1119 grams 2'7" 17% with AC at 21% BPP 8/8 Abd soft NT no ruq pain ext tr edema DTR's 08/02 , no clonus ======== Past History Past Medical History: hypertension, diabetes (gestational ), high cholesterol Past Surgical History: section [employer] History: herpes (equivocal ) Family/Genetic History: heart disease - Obstetrical History : 7 Medications and Allergies Allergies Allergy/AdvReac Type Severity Reaction Status Date / Time No Known Allergies Allergy Verified 11/15/16 17:35 Home Medications Medication Instructions Recorded Confirmed Last Taken Type Pnv No.95/Ferrous Fum/Folic AC 1 tab PO DAILY 11/18/16 04/23/18 04/23/18 History [ Vitamin Tablet] Aspirin [Aspirin BABY CHEW TAB] 81 mg PO QDAY 04/23/18 04/23/18 04/23/18 History Methyldopa 250 mg PO BID 04/23/18 04/23/18 04/23/18 18:00 History Active Meds: Active Medications Acetaminophen (Tylenol) 650 mg PO Q4H PRN PRN Reason: Pain MILD(1-3)/Fever >100.5/FREIRE Betamethasone Acet/Betameth SodPhos (Celestone Soluspan) 12 mg IM Q24H OLI Stop: 04/24/18 22:01 Last Admin: 04/23/18 22:51 Dose: 12 mg Dextrose (D50w (25gm) Syringe) 50 ml IV PRN PRN PRN Reason: Hypoglycemia Diphenhydramine HCl (Benadryl) 25 mg PO Q6H PRN PRN Reason: Itching Docusate Sodium (Colace) 100 mg PO Q12H PRN PRN Reason: Constipation Hydralazine HCl (Apresoline) 5 mg IV Q30MIN PRN PRN Reason: Hypertension Last Admin: 04/24/18 12:04 Dose: 5 mg Lactated Ringer's (Lactated Ringers) 1,000 mls @ 125 mls/hr IV DIRECT OLI Last Admin: 04/24/18 13:21 Dose: 125 mls/hr Magnesium Sulfate (Magnesium Sulfate 40gm/1000ml) 40 gm in 1,000 mls @ 50 mls/ hr IV DIRECT OLI Insulin Human Regular (Humulin R) 0 units SUB-Q ACHS OLI; Protocol Last Admin: 04/24/18 10:40 Dose: 2 units Labetalol HCl (Normodyne) 200 mg PO BID [facility] Last Admin: 04/24/18 10:18 Dose: 200 mg Multivitamins/Iron/Calcium ( Vitamin) 1 each PO QDAY [facility] Last Admin: 04/24/18 10:18 Dose: 1 each Ondansetron HCl (Zofran) 4 mg IV Q6H PRN PRN Reason: Nausea And Vomiting Sodium Chloride (Deep Sea) 2 spray NS Q4H PRN PRN Reason: Congestion - Vital Signs Vital signs: Vital Signs Temp Pulse Resp BP 98.2 F 79 18 173/94 04/23/18 20:00 04/23/18 20:00 04/23/18 20:00 04/23/18 20:00 Temp Pulse Resp BP Pulse Ox 97.9 F 84 18 126/68 96 04/24/18 07:57 04/24/18 13:49 04/24/18 07:57 04/24/18 13:47 04/24/18 13:49 Results Result Diagrams: 04/23/18 22:30 04/23/18 22:30 Abnormal lab results 04/23/18 04/23/18 04/24/18 Range/Units 22:30 22:30 01:13 WBC 12.5 H (4.5-11.0) K/mm3 MCV 77 L (79-97) fl MCH 25 L (28-32) pg Seg Neutrophils % 75.7 H (40.0-70.0) % Seg Neutrophils # 9.4 H (1.8-7.7) K/mm3 Creatinine 0.4 L (0.7-1.2) mg/dL POC Glucose 228 H (70-105) 04/24/18 04/24/18 Range/Units 08:15 10:36 WBC (4.5-11.0) K/mm3 MCV (79-97) fl MCH (28-32) pg Seg Neutrophils % (40.0-70.0) % Seg Neutrophils # (1.8-7.7) K/mm3 Creatinine (0.7-1.2) mg/dL POC Glucose 185 H 174 H (70-105) All other labs normal. Assessment and Plan Impression: 1. Benavides IUP at 28 4/7 weeks 2. CHTN - R/O Superimposed Preeclampsia 3. DM - Not well Controlled - Elevated BS (Received Steroids) 4. MO 5. SGA Recommendations: 1. Insulin Teaching 2. Initiate Insulin: 36N/16R in am and 14R dinner and 14N at bedtime 3. Accuchecks fastings and 2 hour PP's 4. 24 Hour Urine pending tonight 5. Mg per protocol 6. Seq Leg compressors 7. HgA1c if not done 8. Steroids for FLM 9. Deposition pending lab results and stabilization of BP's and BS's 10. Discussed with Dr. Jeff Archuleta
[2018-04-24] MEDS: MAGNESIUM SULFATE 40GM/1000ML 40 GM/1,000 ML BAG IV SCH (14:06)
[2018-04-24] MEDS: CELESTONE SOLUSPAN IM SCH (22:54)
[2018-04-25] MEDS ORDERED: HumuLIN R SUB-Q SCH ×3 (08:00→17:30)
[2018-04-25] MEDS: HumuLIN R SUB-Q SCH ×3 (08:05→14:53)
--- NOTE | 2018-04-25 08:24 | Progress Note ---
Assessment and Plan A/P 1. IUP at 28 5/7 weeks 2. CHTN - R/O Superimposed Preeclampsia 3. DM - Not well Controlled - Elevated BS (Received Steroids) 4. AMA Plan 1. Insulin Teaching ( called nutrition consult) 2. changed sliding scale to Insulin regimen per [facility] 36N/16R in am and 14R dinner and 14N at bedtime 3. Accuchecks fastings and 2 hour PP's 4. 24 Hour Urine 5. Mg per protocol 6. Seq Leg compressors 7. hgba1c 7.8 8. s/p BMZ for lung maturity 9. Await f/u recommendations from [facility] Subjective - Subjective Date of service: 04/25/18 Principal diagnosis: morbid obesity, chronic HTN, DM, Patient reports: movement normal, no new complaints, no loss of fluid, no vaginal bleeding, no contractions Objective - Vital Signs Vital Signs: Vital Signs - 12hr 04/24/18 04/24/18 04/24/18 20:36 20:51 21:06 Temperature Pulse Rate 80 79 80 Respiratory Rate Blood Pressure 148/83 142/81 143/82 O2 Sat by Pulse Oximetry 04/24/18 04/24/18 04/24/18 21:21 21:36 21:51 Temperature Pulse Rate 77 78 77 Respiratory Rate Blood Pressure 148/84 153/84 150/84 O2 Sat by Pulse Oximetry 04/24/18 04/24/18 04/24/18 22:06 22:21 22:32 Temperature Pulse Rate 80 80 80 Respiratory Rate Blood Pressure 148/84 145/78 154/82 O2 Sat by Pulse Oximetry 04/24/18 04/24/18 04/24/18 22:33 22:38 22:43 Temperature Pulse Rate 79 79 80 Respiratory Rate Blood Pressure O2 Sat by Pulse 98 99 97 Oximetry 04/24/18 04/24/18 04/24/18 22:48 22:53 22:58 Temperature 98.0 F Pulse Rate 70 74 70 Respiratory 20 Rate Blood Pressure O2 Sat by Pulse 99 98 99 Oximetry 04/24/18 04/24/18 04/25/18 23:02 23:32 00:02 Temperature Pulse Rate 74 71 69 Respiratory Rate Blood Pressure 132/62 125/62 127/66 O2 Sat by Pulse Oximetry 04/25/18 04/25/18 04/25/18 00:32 01:32 02:02 Temperature Pulse Rate 70 64 71 Respiratory Rate Blood Pressure 132/75 128/71 123/72 O2 Sat by Pulse Oximetry 04/25/18 04/25/18 04/25/18 02:32 03:02 03:32 Temperature Pulse Rate 75 75 76 Respiratory Rate Blood Pressure 136/77 150/83 133/74 O2 Sat by Pulse Oximetry 04/25/18 04/25/18 04/25/18 04:02 04:33 05:03 Temperature Pulse Rate 77 77 70 Respiratory Rate Blood Pressure 142/80 135/67 114/55 O2 Sat by Pulse Oximetry 04/25/18 04/25/18 04/25/18 05:33 06:03 06:33 Temperature Pulse Rate 67 67 76 Respiratory Rate Blood Pressure 108/62 112/64 123/66 O2 Sat by Pulse Oximetry 04/25/18 04/25/18 04/25/18 07:03 07:32 08:03 Temperature Pulse Rate 71 75 79 Respiratory Rate Blood Pressure 133/80 135/75 160/77 O2 Sat by Pulse Oximetry 04/25/18 08:20 Temperature Pulse Rate 79 Respiratory Rate Blood Pressure 168/81 O2 Sat by Pulse Oximetry - Exam Breasts: normal Cardiovascular: Regular rate, Normal S1 Lungs: Clear to auscultation, Normal air movement Abdomen: Present: normal appearance, soft, normal bowel sounds. Absent: distention, tenderness, guarding Vulva: both: normal Uterus: Present: normal, firm. Absent: bogginess, tenderness FHR: category 1 Deep Tendon Reflex Grade: Normal +2 - Labs Labs: Abnormal Labs 04/23/18 04/23/18 04/24/18 22:30 22:30 01:13 WBC 12.5 H MCV 77 L MCH 25 L Seg Neutrophils % 75.7 H Seg Neutrophils # 9.4 H Creatinine 0.4 L POC Glucose 228 H Hemoglobin A1c 04/24/18 04/24/18 04/24/18 08:15 10:36 14:11 WBC MCV MCH Seg Neutrophils % Seg Neutrophils # Creatinine POC Glucose 185 H 174 H Hemoglobin A1c 7.8 H 04/24/18 04/24/18 04/25/18 15:04 19:20 07:40 WBC MCV MCH Seg Neutrophils % Seg Neutrophils # Creatinine POC Glucose 179 H 165 H 160 H Hemoglobin A1c Laboratory Results - last 24 hr 09/04/24/18 04/24/18 10:36 14:11 15:04 POC Glucose 174 H 179 H Hemoglobin A1c 7.8 H 04/24/18 04/25/18 19:20 07:40 POC Glucose 165 H 160 H Hemoglobin A1c
[2018-04-25] MEDS: NORMODYNE PO SCH ×2 (10:07→20:42)
[2018-04-25] MEDS: PRENATAL VITAMIN PO SCH (10:08)
[2018-04-25] MEDS: MAGNESIUM SULFATE 40GM/1000ML 40 GM/1,000 ML BAG IV SCH (10:08)
--- NOTE | 2018-04-25 13:18 | Ultrasound Report ---
ULTRASOUND OB VELOCIMETRY UMBILICAL ARTERY HISTORY: Chronic hypertension, well being. TECHNIQUE: Transabdominal ultrasound. Spectral Doppler interrogation was performed on 3 segments of the umbilical cord. FINDINGS: heart rate measures 144 beats per minute. The spectral waveforms are normal and persistent. No evidence for loss or reversal of end-diastolic flow. The resistive index average measures 0.65. The systolic/diastolic ratio average measures 2.84. IMPRESSION: Umbilical cord Doppler within normal limits.
--- NOTE | 2018-04-25 13:19 | Ultrasound Report ---
ULTRASOUND BIOPHYSICAL PROFILE: History: Chronic hypertension, well being Technique: Transabdominal ultrasound with Doppler interrogation. 2 - breathing movements 2 - movements 2 - posture and tone 2 - Qualitative amniotic fluid volume 8 - TOTAL SCORE OF POSSIBLE 8 Heart Rate (bpm) 144
--- NOTE | 2018-04-25 13:23 | Ultrasound Report ---
OB ULTRASOUND History chronic hypertension, well being. Technique: Transabdominal ultrasound with Doppler interrogation. Gestation: Single Position: Transverse with head to maternal right Amniotic Fluid: Normal LILIAM = 15.8 cm Placenta: Anterior, left lateral Placental Grade: 1 Heart Rate: 144 BPM Cervical length: 3.8 cm (Normal > 3 cm) NEUROANATOMY VISUALIZED: Choroid Plexus Cisterna Magnum Cerebellum Lateral Ventricle ANATOMY VISUALIZED: Stomach Kidneys Bladder Diaphragm 4 Chamber Heart Heart 3 Vessel Cord Abd. Cord Insert SPINE VISUALIZED: Limited spine due to position The following are not demonstrated due to maternal body habitus or lie: Spine BPD: 6.7 cm = 27 w 1 d HC: 25.8 cm = 28 w 0 d AC: 23.6 cm = 28 w 0 d FL: 5.1 cm = 27 w 1 d HC/AC Ratio: 1.09 Cephalic Index: 81.6 Estimated Weight: 1100 grams Clinical age = 28 w 5 d EDC: 07/13/18 US Gest. Age = 27 w 4 d EDC: 07/21/18 IMPRESSION: Viable, single intrauterine as described.
[2018-04-25] MEDS ORDERED: D50W (25GM) Syringe IV PRN (15:22)
[2018-04-25] MEDS: LACTATED RINGERS 1,000 ML IV SCH (17:25)
[2018-04-26] MEDS: NORMODYNE PO SCH ×3 (08:07→20:06)
--- NOTE | 2018-04-26 13:06 | Progress Note ---
Assessment and Plan A: IUP at 28w6d Chronic Hypertension with elevated blood pressures today, presently on Labetalol 200 mg TID; s/p magnesium sulfate therapy Gestational Diabetes on insulin therapy Morbid Obesity Advanced Maternal Age Previous x 1 HSV equivocal GBS positive P: Continue current management Per pt request, if blood pressures and glucose remain appropriate, plan to discharge tonight with follow up next week with OB and MFM. Subjective - Subjective Date of service: 04/26/18 Principal diagnosis: morbid obesity, chronic HTN, DM, Interval history: Pt is adamant that she wants to go home. Her blood pressures have been below range, and glucose vastly improved. Otherwise no complaints. Patient reports: movement normal, no new complaints, no loss of fluid, no vaginal bleeding, no contractions Objective - Vital Signs Vital Signs: Vital Signs - 12hr 04/26/18 04/26/18 04/26/18 01:32 02:02 02:34 Temperature Pulse Rate 70 66 73 Respiratory Rate Blood Pressure 114/76 135/78 139/68 Blood Pressure [Left] O2 Sat by Pulse Oximetry 04/26/18 04/26/18 04/26/18 03:02 03:32 04:02 Temperature Pulse Rate 60 68 73 Respiratory Rate Blood Pressure 139/70 121/73 137/80 Blood Pressure [Left] O2 Sat by Pulse Oximetry 04/26/18 04/26/18 04/26/18 04:32 05:05 05:33 Temperature Pulse Rate 64 71 74 Respiratory Rate Blood Pressure 150/82 146/86 153/74 Blood Pressure [Left] O2 Sat by Pulse Oximetry 04/26/18 04/26/18 04/26/18 06:04 06:17 06:32 Temperature Pulse Rate 72 76 70 Respiratory Rate Blood Pressure 154/75 148/72 155/80 Blood Pressure [Left] O2 Sat by Pulse Oximetry 04/26/18 04/26/18 04/26/18 07:02 07:34 08:02 Temperature Pulse Rate 69 67 77 Respiratory Rate Blood Pressure 144/79 157/80 145/82 Blood Pressure [Left] O2 Sat by Pulse Oximetry 04/26/18 04/26/18 04/26/18 08:07 08:14 08:15 Temperature 98.2 F Pulse Rate 77 77 77 Respiratory 20 Rate Blood Pressure 145/82 Blood Pressure 145/82 [Left] O2 Sat by Pulse 98 96 Oximetry 04/26/18 04/26/18 04/26/18 08:32 09:02 09:32 Temperature Pulse Rate 71 68 70 Respiratory Rate Blood Pressure 170/85 118/68 129/76 Blood Pressure [Left] O2 Sat by Pulse Oximetry 04/26/18 04/26/18 04/26/18 10:03 11:02 11:32 Temperature Pulse Rate 71 66 69 Respiratory Rate Blood Pressure 138/80 142/78 142/84 Blood Pressure [Left] O2 Sat by Pulse Oximetry 04/26/18 04/26/18 12:03 12:32 Temperature Pulse Rate 71 73 Respiratory Rate Blood Pressure 157/89 126/69 Blood Pressure [Left] O2 Sat by Pulse Oximetry - Exam Breasts: deferred Cardiovascular: Regular rate Lungs: Clear to auscultation Abdomen: Present: soft (obese, gravid ) Uterus: Present: other (gravid ) FHR: auscultation normal Uterine Contraction Monitor Mode: External Uterine Contraction Pattern: Absent Uterine Tone Measurement Phase: Resting Extremities: normal - Labs Labs: Abnormal Labs 04/23/18 04/23/18 04/24/18 22:30 22:30 01:13 WBC 12.5 H MCV 77 L MCH 25 L Seg Neutrophils % 75.7 H Seg Neutrophils # 9.4 H Creatinine 0.4 L POC Glucose 228 H Hemoglobin A1c Magnesium Ur Total Protein 24 Hr Urine Total Protein 04/24/18 04/24/18 04/24/18 08:15 10:36 14:11 WBC MCV MCH Seg Neutrophils % Seg Neutrophils # Creatinine POC Glucose 185 H 174 H Hemoglobin A1c 7.8 H Magnesium Ur Total Protein 24 Hr Urine Total Protein 04/24/18 04/24/18 04/24/18 15:04 19:20 21:17 WBC MCV MCH Seg Neutrophils % Seg Neutrophils # Creatinine POC Glucose 179 H 165 H Hemoglobin A1c Magnesium Ur Total Protein 24 Hr 1174.88 H Urine Total Protein 20.98 H 04/25/18 04/25/18 04/25/18 07:40 11:42 14:38 WBC MCV MCH Seg Neutrophils % Seg Neutrophils # Creatinine POC Glucose 160 H 184 H 189 H Hemoglobin A1c Magnesium Ur Total Protein 24 Hr Urine Total Protein 04/25/18 04/26/18 21:30 05:03 WBC MCV MCH Seg Neutrophils % Seg Neutrophils # Creatinine POC Glucose Hemoglobin A1c Magnesium 5.20 H 5.50 H Ur Total Protein 24 Hr Urine Total Protein Laboratory Results - last 24 hr 04/25/18 04/25/18 04/25/18 14:38 20:28 21:30 POC Glucose 189 H 100 Magnesium 5.20 H 04/26/18 04/26/18 04/26/18 05:03 06:16 11:16 POC Glucose 101 94 Magnesium 5.50 H
[2018-04-26 16:33] VITALS: BP 140/76
--- NOTE | 2018-04-26 19:40 | Discharge Summary ---
Providers - Providers Date of Admission: 04/23/18 22:31 Date of discharge: 04/26/18 Attending physician: MAUREEN CANADA Primary care physician: CLEM DEVI MD Hospitalization Reason for admission: other (elevated blood pressure ) Hospital course: Pt was hospitalized secondary to elevated blood pressure and elevated glucose. She was started on Labetalol 200mg TID and given Magnesium Sulfate for seizure prophylaxis. She received two doses of betamethasone as well. By hospital day 3 , she met discharge criteria. She will follow up next week with MFTer[facility] and Dr [place]. Condition at discharge: Stable Disposition: [id number] TO HOME OR SELFCARE - Discharge Diagnoses (1) Chronic hypertension affecting Status: Acute (2) Gestational diabetes mellitus (GDM) Status: Acute Qualifiers: Gestational diabetes mellitus control: insulin-controlled Trimester: third trimester Qualified Code(s): O24.414 - Gestational diabetes mellitus in , insulin controlled (3) Morbid obesity Status: Acute (4) AMA (advanced maternal age) multigravida 35+ Status: Acute Plan - Discharge Medications Prescriptions: Insulin NPH, Human [NovoLIN N] 36 unit SQ QAM #10 ml Insulin Regular, Human [HumuLIN R] 16 units SQ QAM #10 ml Labetalol [Normodyne TAB] 200 mg PO TID #90 tablet Syringe and Needle,Insulin,1Ml [Insulin Syringe] 1 each SQ QAM #120 disp.syrin - Provider Discharge Summary Activity: routine, no sex for 6 weeks, no heavy lifting 4 weeks, no strenuous exercise Diet: routine Instructions: routine Additional instructions: [] Smoking cessation referral if applicable(refer to patient education folder for contact #) [] Refer to [facility] Booklet Call your doctor immediately for: * Fever > 100.5 * Heavy vaginal bleeding ( >1 pad per hour) * Severe persistent headache * Shortness of breath * Reddened, hot, painful area to leg or breast * Drainage or odor from incision. * Keep incision clean and dry at all times and follow doctor's instructions regarding bathing/showering - Follow up plan Follow up: MAUREEN CANADA MD [Staff Physician] - 7 Days SWAPNIL ROJAS MD [Staff Physician] - 7 Days
== END 2018-04-26 20:07 | disposition home or self-care (01) | DRG 781 ==
LOC: TRG 19:26 → LD 21:20 → TRG 22:31
PROVIDERS: ADMIT Obstetrics & Gynecology; ATTEND Obstetrics & Gynecology
DX: O10.013 Pre-existing essential hypertension complicating pregnancy, third trimester (principal); Z68.41 Body mass index [BMI] 40.0-44.9, adult; O98.513 Other viral diseases complicating pregnancy, third trimester; O24.414 Gestational diabetes mellitus in pregnancy, insulin controlled; O99.213 Obesity complicating pregnancy, third trimester; E66.01 Morbid (severe) obesity due to excess calories; B00.9 Herpesviral infection, unspecified; O99.820 Streptococcus B carrier state complicating pregnancy; O34.219 Maternal care for unspecified type scar from previous cesarean delivery; O09.43 Supervision of pregnancy with grand multiparity, third trimester; Z3A.28 28 weeks gestation of pregnancy; Z79.899 Other long term (current) drug therapy; Z82.49 Family history of ischemic heart disease and other diseases of the circulatory system
CPT/HCPCS: 36415; 76805; 76819; 76820; 81001; 82565; 82962; 83036; 83615; 83735; 84156; 84450; 84460; 84550; 85025; 86850; 86900; 86901; J0360; J0702; J1815; J3475; J7120